=== PATIENT | female | born 1985 | race African-American/Black ===

== ENCOUNTER 2017-04-25 10:32 | Emergency (ER) | payer OTHER ==
[2017-04-25] MEDS: NS 1,000 ML IV (12:01)
[2017-04-25] MEDS: MORPHINE 2 MG/ML 1ML SYRINGE IV (12:01)
[2017-04-25 12:08] LABS: BASO % 0.7 % (0.0-1.0); EOS # 0.1 10^3/uL (0.0-0.50); EOS % 3.2 % (0.0-3.0); HEMOGLOBIN 12.7 g/dl (12.0-16.0); LYMPH # 2.1 10^3/uL (1.5-4.5); LYMPH % 51.1 % (24.0-44.0); MEAN CORPUSCULAR HGB CONC 33.4 g/dl (32.0-36.5); MEAN CORPUSCULAR VOLUME 89.8 fl (80.0-96.0); MONO # 0.4 10^3/uL (0.0-0.8); MONO % 9.3 % (0.0-5.0); NEUTROPHILS # 1.5 10^3/uL (1.8-7.7); NEUTROPHILS % 35.7 % (36.0-66.0); PLATELET COUNT, AUTOMATED 261 10^3/uL (150-450); RED BLOOD COUNT 4.23 10^6/uL (4.00-5.40); RED CELL DISTRIBUTION WIDTH 12.2 % (11.5-14.5); WHITE BLOOD COUNT 4.1 10^3/uL (4.0-10.0)
[2017-04-25 12:40] LABS: ALBUMIN 3.9 GM/DL (3.2-5.2); ALBUMIN/GLOBULIN RATIO 1.08 (1.00-1.93); ALKALINE PHOSPHATASE 63 U/L (45-117); ALT/SGPT 22 U/L (12-78); ANION GAP 8 MEQ/L (8-16); AST/SGOT 19 U/L (7-37); BILIRUBIN,DIRECT < 0.1 MG/DL (0.0-0.2); BILIRUBIN,TOTAL 0.3 MG/DL (0.2-1.0); BLOOD UREA NITROGEN 8 MG/DL (7-18); CALCIUM LEVEL 8.7 MG/DL (8.5-10.1); CARBON DIOXIDE LEVEL 27 MEQ/L (21-32); CHLORIDE LEVEL 108 MEQ/L (98-107); GLOMERULAR FILTRATION RATE > 60.0 (>60); GLUCOSE, FASTING 80 MG/DL (70-105); POTASSIUM SERUM 3.5 MEQ/L (3.5-5.1); SODIUM LEVEL 143 MEQ/L (136-145); TOTAL PROTEIN 7.5 GM/DL (6.4-8.2)
[2017-04-25] MEDS ORDERED: ISOVUE-370 76% 100ML VIAL (Q9967) As Ordered (12:46)
[2017-04-25 13:03] LABS: BILIRUBIN, URINE MANUAL NEGATIVE (NEGATIVE); GLUCOSE, URINE (UA) MANUAL NEGATIVE (NEGATIVE); KETONE, URINE MANUAL NEGATIVE (NEGATIVE); NITRITE, URINE MANUAL RFX NEGATIVE (NEGATIVE); PROTEIN, URINE MANUAL REFLEX NEGATIVE (NEGATIVE); SP GRAVITY,URINE MANUAL REFLEX 1.009 (1.002-1.035); UROBILINOGEN, URINE MANUAL NORMAL (NORMAL)
[2017-04-25 13:04] LABS: BLOOD URINE MANUAL RFX TRACE (NEGATIVE)
[2017-04-25 13:05] LABS: MICROSCOPIC INDICATED? RFX YES (NO)
[2017-04-25 13:13] LABS: BACTERIA, URINE MOD AMOUNT; HYALINE CAST, URINE NONE SEEN /lpf (0-1); RBC, URINE 0-1 /hpf (0-3); SQUAMOUS EPITHELIAL CELL URINE SMALL AMOUNT /hpf (SMALL AMT); WBC, URINE MAN RFX 0-1 /hpf (0-3)
[2017-04-25 13:14] LABS: AMORPHOUS SEDIMENT, URINE LARGE AMOUNT (NEGATIVE); MICROSCOPIC EXAM PERFORMED
== END 2017-04-25 14:29 | disposition home or self-care (01) ==
LOC: M ED 10:32
DX: K64.9 Unspecified hemorrhoids (principal); R10.32 Left lower quadrant pain; I10 Essential (primary) hypertension; Z79.899 Other long term (current) drug therapy; Z88.1 Allergy status to other antibiotic agents; Z88.0 Allergy status to penicillin; Z88.8 Allergy status to other drugs, medicaments and biological substances
CPT/HCPCS: Q9967

== ENCOUNTER → 2017-05-15 | Outpatient (CLI) | payer OTHER ==
[2017-05-16 09:31] LABS: CONTROL LINE HPYORI INT CTR LINE PRESENT; H PYLORI QUALITATIVE IgG NEGATIVE (NEGATIVE)
== END ==
LOC: M LAB 16:01
DX: R10.33 Periumbilical pain (principal)
CPT/HCPCS: 82784

== ENCOUNTER → 2017-05-23 | Outpatient (CLI) | payer OTHER | LOC: M RAD 07:21 | DX: R10.33 Periumbilical pain (principal) | CPT/HCPCS: 76705 ==

== ENCOUNTER → 2017-06-27 | Outpatient (REF) | payer OTHER ==
[2017-06-27 21:01] LABS: AMORPHOUS SEDIMENT, URINE MOD AMOUNT (NEGATIVE); BACTERIA, URINE SMALL AMOUNT; CALCIUM OXALATE CRYSTALS,URINE MOD AMOUNT /hpf; MUCUS, URINE SMALL AMOUNT (NEGATIVE); SQUAMOUS EPITHELIAL CELL URINE MOD AMOUNT /hpf (SMALL AMT)
[2017-06-27 21:02] LABS: WBC, URINE 0-1 /hpf (0-3)
[2017-06-27 21:05] LABS: HYALINE CAST, URINE NONE SEEN /lpf (0-1); MICROSCOPIC EXAM PERFORMED
== END ==
LOC: M LAB REF 17:17
DX: R31.29 Other microscopic hematuria (principal)

== ENCOUNTER → 2017-07-02 | Outpatient (REF) | payer OTHER ==
[2017-07-02 20:16] LABS: SLIDE REVIEW Report; SOURCE PERIPHERAL SMEAR
[2017-07-04 14:13] LABS: ANTINUCLEAR ANTIBODIES DIRECT Negative (Negative)
== END ==
LOC: M LAB REF 16:26
DX: D70.9 Neutropenia, unspecified (principal)

== ENCOUNTER → 2017-07-26 | Outpatient (CLI) | payer OTHER ==
[~2017-07-26] MED LIST: E-Z-GAS II EFFERVESCENT PACKET (SODIUM BICARB./CITRIC ACID/SIMETHICONE) As Ordered; E-Z-HD 98% w/w 340GM SUSP BTL As Ordered; E-Z-PAQUE 96% w/w SUSP 176GM BTL As Ordered
== END ==
LOC: M RAD 08:40
DX: R10.33 Periumbilical pain (principal)
CPT/HCPCS: 74245

== ENCOUNTER 2017-08-08 09:36 | Day surgery (SDC) | payer OTHER ==
[2017-08-08] MEDS: NS 1,000 ML IV (10:20)
[2017-08-08] MEDS ORDERED: PROPOFOL 200 MG/20 ML VIAL As Ordered (11:21)
[2017-08-08] MEDS ORDERED: LIDOCAINE 2% INJ 100 MG/5 ML SDV (FOR ANES.) As Ordered (11:21)
== END 2017-08-08 12:34 | disposition home or self-care (01) ==
LOC: M OPP 09:36
DX: K21.0 Gastro-esophageal reflux disease with esophagitis (principal); K31.89 Other diseases of stomach and duodenum; R93.3 Abnormal findings on diagnostic imaging of other parts of digestive tract; R19.8 Other specified symptoms and signs involving the digestive system and abdomen; I10 Essential (primary) hypertension; K62.5 Hemorrhage of anus and rectum; K59.00 Constipation, unspecified; D64.9 Anemia, unspecified; F41.9 Anxiety disorder, unspecified; F32.9 Major depressive disorder, single episode, unspecified; G43.909 Migraine, unspecified, not intractable, without status migrainosus; G47.00 Insomnia, unspecified; G47.30 Sleep apnea, unspecified; Z88.1 Allergy status to other antibiotic agents; Z88.0 Allergy status to penicillin; Z88.8 Allergy status to other drugs, medicaments and biological substances; Z79.899 Other long term (current) drug therapy
CPT/HCPCS: 43239

== ENCOUNTER → 2017-08-12 | Outpatient (REF) | payer OTHER ==
[2017-08-12 17:47] LABS: AMORPHOUS SEDIMENT LARGE (NEGATIVE); APPEARANCE, URINE CLOUDY (CLEAR); BACTERIA, URINE AUTO NEGATIVE (NEGATIVE); BILIRUBIN, URINE AUTO NEGATIVE (NEGATIVE); BLOOD, URINE BLOOD 1+ (NEGATIVE); CALCIUM OXALATE CRYSTALS SMALL; COLOR, URINE YELLOW (YELLOW); GLUCOSE, URINE (UA) AUTO NEGATIVE (NEGATIVE); KETONE, URINE AUTO NEGATIVE (NEGATIVE); LEUKOCYTE ESTERASE, URINE AUTO NEGATIVE (NEGATIVE); NITRITE, URINE AUTO NEGATIVE (NEGATIVE); PROTEIN, URINE AUTO NEGATIVE (NEGATIVE); RBC, URINE AUTO 1 /HPF (0-3); SPECIFIC GRAVITY URINE AUTO 1.017 (1.002-1.035); SQUAMOUS EPITHELIAL CELL UR AU 0 /HPF (0-6); UROBILINOGEN, URINE AUTO 0.2 mg/dL (0.0-2.0); WBC, URINE AUTO 0 /HPF (0-3)
== END ==
LOC: M SMT 17:14
DX: R31.29 Other microscopic hematuria (principal)
CPT/HCPCS: 81001